=== PATIENT | female | born 1945 | race Caucasian/White ===

== ENCOUNTER 2021-04-19 09:22 | Inpatient (IN) ==
[2021-04-19] MEDS ORDERED: Ondansetron 4 MG/2 ML VIAL IVP ONE ×2 (10:03→10:45)
[2021-04-19 10:43] LABS: Basophils # 0.1 K/mcL (0.0-0.2); Basophils % 0.8 %; Eosinophils # 0.1 K/mcL (0.0-0.6); Eosinophils % 1.3 %; Hematocrit 42.2 % (35.3-44.9); Immature Granulocytes % 0.2 % (0-4); Lymphocytes # 1.2 K/mcL (0.6-4.6); Mean Corpuscular HGB Conc 33.2 g/dL (31.6-35.5); Mean Corpuscular Volume 84.4 fL (83.0-100.0); Mean Platelet Volume 10.4 fL (9.4-12.4); Monocytes # 0.6 K/mcL (0.0-1.3); Monocytes % 7.2 %; Neutrophils # 6.5 K/mcL (1.6-8.9); Platelet Count 207 K/mcL (140-400); Red Cell Distribution Width 14.1 % (11.5-14.5); Segmented Neutrophils % 76.5 %; White Blood Count 8.5 K/mcL (4.3-11.1)
[2021-04-19 10:55] LABS: Bilirubin,Urine Negative (Negative); Blood,Urine Small (Negative); Clarity,Urine Clear (Clear); Color,Urine Yellow (Yellow); Glucose,Urine (UA) >=1000 mg/dL (Normal); Ketones,Urine 40 mg/dL (Negative); Leukocyte Esterase,Urine Trace (Negative); Nitrite,Urine Positive (Negative); Protein,Urine 100 mg/dL (Neg-Trace); Urobilinogen,Urine Normal (Normal)
[2021-04-19 10:55] LABS: INR 1.6; Prothrombin Time 17.3 Seconds (9.4-12.1)
[2021-04-19 10:57] LABS: Activated Partial Thrombo Time 41.1 Seconds (26.0-36.0)
[2021-04-19 11:02] LABS: Alanine Aminotransferase 12 Units/L (7-52); Albumin 4.5 g/dL (3.5-5.7); Albumin/Globulin Ratio 1.3 (1.1-2.2); Alkaline Phosphatase 99 Units/L (34-104); Aspartate Amino Transferase 16 Units/L (13-39); BUN/Creatinine Ratio 16 (6-26); Bilirubin,Direct 0.1 mg/dL (0.0-0.2); Bilirubin,Indirect 1.2 mg/dL (0.0-1.0); Bilirubin,Total 1.3 mg/dL (0.3-1.0); Blood Urea Nitrogen 14 mg/dL (8-23); Calcium 9.6 mg/dL (8.6-10.3); Carbon Dioxide 26 mEq/L (23-29); Chloride 97 mEq/L (98-107); Globulin 3.5 g/dL (2.4-3.5); Glucose 272 mg/dL (70-105); Lipase 22 Units/L (11-82); Osmolality,Calculated 286 (280-300); Potassium 3.6 mEq/L (3.5-5.1); Sodium 133 mEq/L (136-145); eGFR For African Americans > 60 (> 60); eGFR For Non-African Americans > 60 (> 60)
[2021-04-19 11:07] LABS: Troponin I < 0.03 ng/mL (< 0.04)
[2021-04-19 11:14] LABS: Bacteria,Urine Many per hpf (None-Few); Squamous Epithelial Cell,Urine Few per hpf (None-Few); WBC,Urine 15-30 per hpf (0-3)
[2021-04-19] MEDS ORDERED: 0.9 % Sodium Chloride 1,000 ML IVC ONE (11:29)
[2021-04-19] MEDS ORDERED: Acetaminophen 325 MG TABLET PO PRN (13:15)
[2021-04-19] MEDS ORDERED: Naloxone 0.4 MG/ML INJ IVP PRN (13:15)
[2021-04-19] MEDS ORDERED: Ondansetron 4 MG/2 ML VIAL IVP PRN (13:15)
[2021-04-19] MEDS: 0.9 % Sodium Chloride 1,000 ML IVC SCH (13:54)
[2021-04-19] MEDS ORDERED: *HR* Dextrose 50 % in Water (Syg) 50 ML SYRINGE IVP PRN (16:35)
[2021-04-19] MEDS ORDERED: D5% in Water 1,000 ML IVC PRN (16:35)
[2021-04-19] MEDS ORDERED: Dextrose Gel 15 GM/37.5 ML TUBE PO PRN ×2 (16:35)
[2021-04-19] MEDS ORDERED: lisinopriL 5 MG TABLET PO SCH (16:45)
[2021-04-19] MEDS: *HR* Metformin 500 MG TABLET PO SCH (17:12)
[2021-04-19] MEDS: Insulin LISPRO 300 UNITS/3 ML VIAL SUBQ SCH (17:46)
[2021-04-20] MEDS: NILOTINIB HCL 150 MG PO SCH ×3 (01:53→20:48)
[2021-04-20] MEDS: 0.9 % Sodium Chloride 1,000 ML IVC SCH (01:54)
[2021-04-20] MEDS: *HR* Enoxaparin 40 MG/0.4 ML SYRINGE SQ SCH (05:04)
[2021-04-20 08:19] LABS: Basophils # 0.1 K/mcL (0.0-0.2); Basophils % 0.8 %; Eosinophils # 0.2 K/mcL (0.0-0.6); Eosinophils % 3.5 %; Hematocrit 35.6 % (35.3-44.9); Hemoglobin 11.6 g/dL (11.5-15.4); Immature Granulocytes % 0.2 % (0-4); Lymphocytes # 1.1 K/mcL (0.6-4.6); Lymphocytes % 18.7 %; Mean Corpuscular HGB Conc 32.6 g/dL (31.6-35.5); Mean Corpuscular Hemoglobin 28.2 pg (28.0-33.3); Mean Corpuscular Volume 86.4 fL (83.0-100.0); Mean Platelet Volume 10.1 fL (9.4-12.4); Monocytes # 0.5 K/mcL (0.0-1.3); Monocytes % 8.8 %; Neutrophils # 4.1 K/mcL (1.6-8.9); Platelet Count 161 K/mcL (140-400); Red Blood Count 4.12 M/mcL (3.82-4.97); Red Cell Distribution Width 14.3 % (11.5-14.5)
[2021-04-20] MEDS: *HR* Metformin 500 MG TABLET PO SCH ×2 (08:20→18:08)
[2021-04-20] MEDS: lisinopriL 10 MG TABLET PO SCH (08:20)
[2021-04-20] MEDS: cefTRIAXone 2,000 MG in 0.9 % Sodium Chloride Mini Bag 100 ML IVPB SCH (08:21)
[2021-04-20] MEDS: Insulin LISPRO 300 UNITS/3 ML VIAL SUBQ SCH ×3 (08:43→18:02)
[2021-04-20 09:06] LABS: BUN/Creatinine Ratio 18 (6-26); Blood Urea Nitrogen 16 mg/dL (8-23); Calcium 8.6 mg/dL (8.6-10.3); Carbon Dioxide 27 mEq/L (23-29); Chloride 105 mEq/L (98-107); Glucose 186 mg/dL (70-105); Magnesium 1.6 mg/dL (1.6-2.6); Osmolality,Calculated 292 (280-300); Potassium 3.7 mEq/L (3.5-5.1); Sodium 138 mEq/L (136-145); eGFR For African Americans > 60 (> 60); eGFR For Non-African Americans > 60 (> 60)
[2021-04-20] MEDS: amLODIPine 5 MG TABLET PO SCH (18:08)
[2021-04-21] MEDS: *HR* Enoxaparin 40 MG/0.4 ML SYRINGE SQ SCH (06:09)
[2021-04-21 07:55] LABS: Hematocrit 35.9 % (35.3-44.9); Hemoglobin 11.9 g/dL (11.5-15.4); Mean Corpuscular HGB Conc 33.1 g/dL (31.6-35.5); Mean Corpuscular Hemoglobin 28.3 pg (28.0-33.3); Mean Corpuscular Volume 85.3 fL (83.0-100.0); Mean Platelet Volume 10.5 fL (9.4-12.4); Platelet Count 185 K/mcL (140-400); Red Blood Count 4.21 M/mcL (3.82-4.97); Red Cell Distribution Width 14.4 % (11.5-14.5); White Blood Count 5.9 K/mcL (4.3-11.1)
[2021-04-21 08:16] LABS: BUN/Creatinine Ratio 16 (6-26); Blood Urea Nitrogen 13 mg/dL (8-23); Calcium 8.9 mg/dL (8.6-10.3); Carbon Dioxide 25 mEq/L (23-29); Chloride 103 mEq/L (98-107); Glucose 192 mg/dL (70-105); Osmolality,Calculated 285 (280-300); Potassium 3.5 mEq/L (3.5-5.1); Sodium 135 mEq/L (136-145); eGFR For African Americans > 60 (> 60); eGFR For Non-African Americans > 60 (> 60)
[2021-04-21] MEDS: cefTRIAXone 2,000 MG in 0.9 % Sodium Chloride Mini Bag 100 ML IVPB SCH (09:51)
[2021-04-21] MEDS: lisinopriL 10 MG TABLET PO SCH (09:51)
[2021-04-21] MEDS: *HR* Metformin 500 MG TABLET PO SCH ×2 (09:51→16:53)
[2021-04-21] MEDS: amLODIPine 5 MG TABLET PO SCH (09:51)
[2021-04-21] MEDS: NILOTINIB HCL 150 MG PO SCH ×2 (09:58→19:39)
[2021-04-21] MEDS: Insulin LISPRO 300 UNITS/3 ML VIAL SUBQ SCH ×3 (10:08→16:49)
[2021-04-22] MEDS: *HR* Enoxaparin 40 MG/0.4 ML SYRINGE SQ SCH (05:52)
[2021-04-22] MEDS: NILOTINIB HCL 150 MG PO SCH ×2 (08:42→20:10)
[2021-04-22] MEDS: amLODIPine 5 MG TABLET PO SCH (08:43)
[2021-04-22] MEDS: cefTRIAXone 2,000 MG in 0.9 % Sodium Chloride Mini Bag 100 ML IVPB SCH (08:43)
[2021-04-22] MEDS: lisinopriL 10 MG TABLET PO SCH (08:43)
[2021-04-22] MEDS: Insulin LISPRO 300 UNITS/3 ML VIAL SUBQ SCH ×3 (08:43→16:48)
[2021-04-22] MEDS: *HR* Metformin 500 MG TABLET PO SCH ×2 (08:43→16:54)
[2021-04-22] MEDS: Amoxicillin/Clavulanate 500 MG TABLET PO SCH (16:54)
[2021-04-23] MEDS: *HR* Enoxaparin 40 MG/0.4 ML SYRINGE SQ SCH (05:16)
[2021-04-23] MEDS: NILOTINIB HCL 150 MG PO SCH (08:35)
[2021-04-23] MEDS: Insulin LISPRO 300 UNITS/3 ML VIAL SUBQ SCH ×2 (08:35→12:39)
[2021-04-23] MEDS: *HR* Metformin 500 MG TABLET PO SCH (08:36)
[2021-04-23] MEDS: lisinopriL 10 MG TABLET PO SCH (08:36)
[2021-04-23] MEDS: Amoxicillin/Clavulanate 500 MG TABLET PO SCH (08:36)
[2021-04-23] MEDS ORDERED: amLODIPine 5 MG TABLET PO SCH (09:00)
[2021-04-23 15:59] VITALS: BP 165/74; PULSE 61; RESP 17; TEMP 98.5; O2SAT 97
== END 2021-04-23 15:20 | disposition other institution (70) | DRG 690 ==
LOC: INPPIK 09:22 → EMEROOPIK 09:22 → INPPIK 18:30
PROVIDERS: ADMIT Family Medicine; ATTEND Family Medicine

== ENCOUNTER 2021-04-22 19:02 | Inpatient (IN) ==
[2021-04-23] MEDS ORDERED: D5% in Water 1,000 ML IVC PRN (12:59)
[2021-04-23] MEDS ORDERED: Dextrose Gel 15 GM/37.5 ML TUBE PO PRN ×2 (12:59)
[2021-04-23] MEDS ORDERED: *HR* Dextrose 50 % in Water (Syg) 50 ML SYRINGE IVP PRN (12:59)
[2021-04-23] MEDS: *HR* Metformin 500 MG TABLET PO SCH (16:33)
[2021-04-23] MEDS: Amoxicillin/Clavulanate 500 MG TABLET PO SCH (16:33)
[2021-04-23] MEDS: Insulin LISPRO 300 UNITS/3 ML VIAL SUBQ SCH ×2 (16:33→21:23)
[2021-04-23] MEDS: NILOTINIB HCL 150 MG PO SCH (21:23)
[2021-04-24] MEDS: *HR* Enoxaparin 40 MG/0.4 ML SYRINGE SQ SCH (06:04)
[2021-04-24 07:45] LABS: Basophils # 0.1 K/mcL (0.0-0.2); Basophils % 0.8 %; Eosinophils # 0.3 K/mcL (0.0-0.6); Eosinophils % 4.3 %; Hematocrit 37.7 % (35.3-44.9); Hemoglobin 12.5 g/dL (11.5-15.4); Immature Granulocytes % 0.3 % (0-4); Lymphocytes # 1.5 K/mcL (0.6-4.6); Lymphocytes % 23.3 %; Mean Corpuscular HGB Conc 33.2 g/dL (31.6-35.5); Mean Corpuscular Hemoglobin 28.3 pg (28.0-33.3); Mean Corpuscular Volume 85.3 fL (83.0-100.0); Mean Platelet Volume 10.5 fL (9.4-12.4); Monocytes # 0.6 K/mcL (0.0-1.3); Monocytes % 9.2 %; Platelet Count 212 K/mcL (140-400); Red Blood Count 4.42 M/mcL (3.82-4.97); Red Cell Distribution Width 14.2 % (11.5-14.5); Segmented Neutrophils % 62.1 %; White Blood Count 6.4 K/mcL (4.3-11.1)
[2021-04-24] MEDS: *HR* Metformin 500 MG TABLET PO SCH ×2 (07:51→17:13)
[2021-04-24] MEDS: NILOTINIB HCL 150 MG PO SCH ×2 (07:51→20:04)
[2021-04-24] MEDS: Amoxicillin/Clavulanate 500 MG TABLET PO SCH ×2 (07:51→17:13)
[2021-04-24] MEDS: Insulin LISPRO 300 UNITS/3 ML VIAL SUBQ SCH ×4 (07:52→20:03)
[2021-04-24 08:04] LABS: BUN/Creatinine Ratio 23 (6-26); Blood Urea Nitrogen 18 mg/dL (8-23); Calcium 9.2 mg/dL (8.6-10.3); Carbon Dioxide 27 mEq/L (23-29); Chloride 103 mEq/L (98-107); Glucose 151 mg/dL (70-105); Osmolality,Calculated 289 (280-300); Sodium 137 mEq/L (136-145); eGFR For African Americans > 60 (> 60); eGFR For Non-African Americans > 60 (> 60)
[2021-04-24] MEDS: lisinopriL 20 MG TABLET PO SCH (09:06)
[2021-04-24] MEDS: amLODIPine 5 MG TABLET PO SCH (09:06)
[2021-04-24] MEDS: Sennosides/Docusate Sodium TABLET PO SCH (20:04)
[2021-04-25] MEDS: *HR* Enoxaparin 40 MG/0.4 ML SYRINGE SQ SCH (06:35)
[2021-04-25] MEDS: Insulin LISPRO 300 UNITS/3 ML VIAL SUBQ SCH ×3 (07:59→18:40)
[2021-04-25] MEDS: *HR* Metformin 500 MG TABLET PO SCH ×2 (08:00→18:24)
[2021-04-25] MEDS: Sennosides/Docusate Sodium TABLET PO SCH ×2 (08:00→19:54)
[2021-04-25] MEDS: lisinopriL 20 MG TABLET PO SCH (08:00)
[2021-04-25] MEDS: NILOTINIB HCL 150 MG PO SCH ×2 (08:00→18:23)
[2021-04-25] MEDS: amLODIPine 5 MG TABLET PO SCH (08:00)
[2021-04-25] MEDS: Amoxicillin/Clavulanate 500 MG TABLET PO SCH ×2 (08:00→18:23)
[2021-04-26] MEDS: *HR* Enoxaparin 40 MG/0.4 ML SYRINGE SQ SCH (06:17)
[2021-04-26] MEDS: NILOTINIB HCL 150 MG PO SCH ×2 (06:18→18:39)
[2021-04-26] MEDS: Amoxicillin/Clavulanate 500 MG TABLET PO SCH ×2 (09:41→17:21)
[2021-04-26] MEDS: Sennosides/Docusate Sodium TABLET PO SCH ×2 (09:41→21:35)
[2021-04-26] MEDS: amLODIPine 5 MG TABLET PO SCH (09:41)
[2021-04-26] MEDS: lisinopriL 20 MG TABLET PO SCH (09:41)
[2021-04-26] MEDS: *HR* Metformin 500 MG TABLET PO SCH ×2 (09:41→17:21)
[2021-04-27] MEDS: *HR* Enoxaparin 40 MG/0.4 ML SYRINGE SQ SCH (06:10)
[2021-04-27] MEDS: NILOTINIB HCL 150 MG PO SCH ×2 (06:10→17:38)
[2021-04-27] MEDS: lisinopriL 20 MG TABLET PO SCH (10:10)
[2021-04-27] MEDS: amLODIPine 5 MG TABLET PO SCH (10:10)
[2021-04-27] MEDS: Sennosides/Docusate Sodium TABLET PO SCH ×2 (10:10→21:01)
[2021-04-27] MEDS: *HR* Metformin 500 MG TABLET PO SCH ×2 (10:11→16:37)
[2021-04-28 05:32] LABS: Hematocrit 36.4 % (35.3-44.9); Mean Corpuscular Hemoglobin 28.3 pg (28.0-33.3); Mean Corpuscular Volume 85.8 fL (83.0-100.0); Mean Platelet Volume 10.2 fL (9.4-12.4); Platelet Count 221 K/mcL (140-400); Red Blood Count 4.24 M/mcL (3.82-4.97); Red Cell Distribution Width 14.1 % (11.5-14.5); White Blood Count 6.3 K/mcL (4.3-11.1)
[2021-04-28] MEDS: NILOTINIB HCL 150 MG PO SCH ×2 (05:44→16:44)
[2021-04-28] MEDS: *HR* Enoxaparin 40 MG/0.4 ML SYRINGE SQ SCH (05:45)
[2021-04-28 06:33] LABS: BUN/Creatinine Ratio 22 (6-26); Blood Urea Nitrogen 19 mg/dL (8-23); Calcium 9.2 mg/dL (8.6-10.3); Carbon Dioxide 27 mEq/L (23-29); Chloride 103 mEq/L (98-107); Glucose 112 mg/dL (70-105); Osmolality,Calculated 287 (280-300); Potassium 3.9 mEq/L (3.5-5.1); Sodium 137 mEq/L (136-145); eGFR For African Americans > 60 (> 60); eGFR For Non-African Americans > 60 (> 60)
[2021-04-28] MEDS: lisinopriL 20 MG TABLET PO SCH (07:51)
[2021-04-28] MEDS: Sennosides/Docusate Sodium TABLET PO SCH ×2 (07:52→20:38)
[2021-04-28] MEDS: *HR* Metformin 500 MG TABLET PO SCH ×2 (07:52→16:44)
[2021-04-28] MEDS: amLODIPine 5 MG TABLET PO SCH (07:52)
[2021-04-28 11:00] LABS: Estimated Average Glucose 212 mg/dl
[2021-04-29] MEDS: NILOTINIB HCL 150 MG PO SCH ×2 (05:52→17:46)
[2021-04-29] MEDS: *HR* Enoxaparin 40 MG/0.4 ML SYRINGE SQ SCH (05:52)
[2021-04-29] MEDS: Sennosides/Docusate Sodium TABLET PO SCH ×2 (08:38→20:05)
[2021-04-29] MEDS: amLODIPine 5 MG TABLET PO SCH (08:38)
[2021-04-29] MEDS: lisinopriL 20 MG TABLET PO SCH (08:38)
[2021-04-29] MEDS: *HR* Metformin 500 MG TABLET PO SCH ×2 (08:39→17:45)
[2021-04-30] MEDS: *HR* Enoxaparin 40 MG/0.4 ML SYRINGE SQ SCH (05:51)
[2021-04-30] MEDS: NILOTINIB HCL 150 MG PO SCH ×2 (05:51→18:16)
[2021-04-30] MEDS: Sennosides/Docusate Sodium TABLET PO SCH ×2 (08:59→20:31)
[2021-04-30] MEDS: amLODIPine 5 MG TABLET PO SCH (08:59)
[2021-04-30] MEDS: lisinopriL 20 MG TABLET PO SCH (09:00)
[2021-04-30] MEDS: *HR* Metformin 500 MG TABLET PO SCH ×2 (09:00→17:01)
[2021-05-01] MEDS: *HR* Enoxaparin 40 MG/0.4 ML SYRINGE SQ SCH (05:53)
[2021-05-01] MEDS: NILOTINIB HCL 150 MG PO SCH ×2 (05:53→17:57)
[2021-05-01] MEDS: amLODIPine 5 MG TABLET PO SCH (08:01)
[2021-05-01] MEDS: Sennosides/Docusate Sodium TABLET PO SCH ×2 (08:01→21:18)
[2021-05-01] MEDS: *HR* Metformin 500 MG TABLET PO SCH ×2 (08:02→15:54)
[2021-05-01] MEDS: lisinopriL 20 MG TABLET PO SCH (08:02)
[2021-05-02] MEDS: *HR* Enoxaparin 40 MG/0.4 ML SYRINGE SQ SCH (05:45)
[2021-05-02] MEDS: NILOTINIB HCL 150 MG PO SCH ×2 (05:45→17:43)
[2021-05-02] MEDS: *HR* Metformin 500 MG TABLET PO SCH ×2 (07:38→17:21)
[2021-05-02] MEDS: lisinopriL 20 MG TABLET PO SCH (07:38)
[2021-05-02] MEDS: amLODIPine 5 MG TABLET PO SCH (07:38)
[2021-05-02] MEDS: Sennosides/Docusate Sodium TABLET PO SCH ×3 (07:39→19:44)
[2021-05-03] MEDS: NILOTINIB HCL 150 MG PO SCH ×2 (05:37→17:52)
[2021-05-03] MEDS: *HR* Enoxaparin 40 MG/0.4 ML SYRINGE SQ SCH (05:37)
[2021-05-03] MEDS: amLODIPine 5 MG TABLET PO SCH (08:10)
[2021-05-03] MEDS: lisinopriL 20 MG TABLET PO SCH (08:10)
[2021-05-03] MEDS: *HR* Metformin 500 MG TABLET PO SCH ×2 (08:11→17:06)
[2021-05-03] MEDS: Sennosides/Docusate Sodium TABLET PO SCH (08:11)
[2021-05-04] MEDS: NILOTINIB HCL 150 MG PO SCH ×2 (05:29→17:53)
[2021-05-04] MEDS: *HR* Enoxaparin 40 MG/0.4 ML SYRINGE SQ SCH (05:31)
[2021-05-04] MEDS: *HR* Metformin 500 MG TABLET PO SCH ×2 (07:42→17:03)
[2021-05-04] MEDS: lisinopriL 20 MG TABLET PO SCH (07:42)
[2021-05-04] MEDS: amLODIPine 5 MG TABLET PO SCH (07:43)
[2021-05-05] MEDS: *HR* Enoxaparin 40 MG/0.4 ML SYRINGE SQ SCH (05:59)
[2021-05-05] MEDS: NILOTINIB HCL 150 MG PO SCH ×2 (05:59→17:19)
[2021-05-05] MEDS: lisinopriL 20 MG TABLET PO SCH (07:35)
[2021-05-05] MEDS: *HR* Metformin 500 MG TABLET PO SCH ×2 (07:35→16:32)
[2021-05-05] MEDS: amLODIPine 5 MG TABLET PO SCH (07:35)
[2021-05-06] MEDS: NILOTINIB HCL 150 MG PO SCH (05:30)
[2021-05-06] MEDS: *HR* Enoxaparin 40 MG/0.4 ML SYRINGE SQ SCH (05:30)
[2021-05-06] MEDS: lisinopriL 20 MG TABLET PO SCH (07:33)
[2021-05-06] MEDS: *HR* Metformin 500 MG TABLET PO SCH (07:33)
[2021-05-06] MEDS: amLODIPine 5 MG TABLET PO SCH (07:33)
[2021-05-06 07:39] VITALS: BP 144/69; PULSE 51; RESP 16; TEMP 97.8; O2SAT 97
== END 2021-05-06 08:00 | disposition home or self-care (01) ==
LOC: INPPIK 04-23 15:29
PROVIDERS: ADMIT Family Medicine; ATTEND Family Medicine